=== PATIENT | female | born 1950 | race Caucasian/White ===

== ENCOUNTER → 2018-08-09 | Outpatient (CLI) | payer MEDICARE | LOC: MC.RAD 11:04 | DX: Z12.31 Encounter for screening mammogram for malignant neoplasm of breast (principal) ==

== ENCOUNTER 2019-01-05 12:35 | Emergency (ER) | payer MEDICARE ==
[2019-01-05 12:35] VITALS: TEMP 97
[2019-01-05 13:27] LABS: BASO % 0.7 % (0.0-2.0); EOS % 0.4 % (0-4.0); GRAN # 1.1 (1.4-6.5); GRAN % 41.2 % (42.2-75.2); HEMOGLOBIN 11.5 g/dl (12.5-16.0); LYMPH # 1.1 (1.2-3.4); LYMPH % 40.9 % (20.0-51.0); MEAN CELL VOLUME 85 fl (80.0-100.0); MEAN CORPUSCULAR HEMOGLOBIN 28 pg (27.0-31.0); MEAN CORPUSCULAR HGB CONC 33 g/dl (33.0-37.0); MEAN PLATELET VOLUME 10.3 fl (7.4-10.4); MONO # 0.4 (0.1-0.6); MONO % 16.4 % (1.7-9.3); PLATELET COUNT 185 K/mm3 (130-400); RED BLOOD COUNT 4.12 M/mm3 (4.10-5.30); REDCELL DISTRIBUTION WIDTH-CV 12.7 % (11.5-14.5)
[2019-01-05 13:32] LABS: HEMATOCRIT 34.9 % (37.0-47.0)
[2019-01-05 13:38] LABS: ALANINE AMINOTRANSFERASE 33 U/L (9-52); ALBUMIN 3.6 gm/dL (3.5-5.0); ALKALINE PHOSPHATASE 78 U/L (50-136); ANION GAP 9 mmol/L (7-16); AST,SGOT 29 U/L (15-37); BILIRUBIN,TOTAL 0.3 mg/dL (0.0-1.0); BLOOD UREA NITROGEN 11 mg/dL (7-17); CALCIUM 8.1 mg/dL (8.4-10.2); CARBON DIOXIDE 26 mmol/L (22-30); CHLORIDE 95 mmol/L (98-107); CREATININE, serum 0.67 (0.52-1.25); GLUCOSE 99 mg/dL (74-106); LIPASE 32 U/L (23-300); POTASSIUM 3.7 mmol/L (3.4-5.0); SODIUM 130 mmol/L (137-145); TOTAL PROTEIN 6.1 gm/dL (6.4-8.2)
[2019-01-05 13:45] LABS: C-REACTIVE PROTEIN < 0.5 mg/dL (0.0-0.9)
[2019-01-05 14:57] LABS: COLLECTION METHOD CLEAN CATCH
[2019-01-05] MEDS ORDERED: KEPPRA 500MG500 MG PO (15:25)
[2019-01-05 15:26] LABS: PH 8 (5-8); SQUAMOUS EPITHELIAL None Seen /hpf; URINE APPEARANCE Clear; URINE BACTERIA None Seen /hpf; URINE BILIRUBIN Negative (NEGATIVE); URINE BLOOD Negative (NEGATIVE); URINE COLOR Straw; URINE GLUCOSE Negative (NEGATIVE); URINE KETONE Negative (NEGATIVE); URINE LEUKOCYTE ESTERASE Negative (NEGATIVE); URINE NITRATE Negative (NEGATIVE); URINE PROTEIN(semi-quant) Negative (NEGATIVE); URINE RBC None Seen /hpf; URINE UROBILINOGEN Negative (NEGATIVE)
[2019-01-05 16:30] VITALS: BP 130/61; PULSE 54
[2019-01-05] MEDS ORDERED: NORVASC 5MG5 MG/TAB PO (18:41)
[2019-01-05] MEDS ORDERED: LOPRESSOR 225 MG/TAB PO (18:41)
[2019-01-05] MEDS ORDERED: HYZAAR 25 MG-101 TAB PO (18:42)
[2019-01-05] MEDS ORDERED: CALCIUM 600-D 61 TAB PO (18:44)
[2019-01-05] MEDS ORDERED: MULTI VITAMINS1 TAB PO (18:45)
[2019-01-05] MEDS ORDERED: EPA FISH OIL1 SGL PO (18:45)
== END 2019-01-05 17:00 | disposition home or self-care (01) ==
LOC: COL.ER 12:35
PROVIDERS: Family Medicine
DX: R55 Syncope and collapse (principal)
CPT/HCPCS: J2405; J7030

== ENCOUNTER → 2019-09-08 | Outpatient (CLI) | payer MEDICARE ==
[~2019-09-08] MED LIST: CALCIUM 600-D 61 TAB PO; EPA FISH OIL1 SGL PO; HYZAAR 25 MG-101 TAB PO; KEPPRA 500MG500 MG PO; LOPRESSOR 225 MG/TAB PO; MULTI VITAMINS1 TAB PO; NORVASC 5MG5 MG/TAB PO
== END ==
LOC: MC.RAD 14:30
DX: Z12.31 Encounter for screening mammogram for malignant neoplasm of breast (principal)

== ENCOUNTER → 2020-11-20 | Outpatient (CLI) | payer MEDICARE ==
[~2020-11-20] MED LIST changes: +COZAAR100 MG PO; +HCTZ12.5TAB PO
== END ==
LOC: MC.RAD 11:02
DX: Z12.31 Encounter for screening mammogram for malignant neoplasm of breast (principal)

== ENCOUNTER 2020-12-03 19:16 | Emergency (ER) | payer MEDICARE ==
[~2020-12-03] VITALS: Ht 165.1 cm; Wt 95.5 kg
[~2020-12-03 19:16] MED LIST changes: -COZAAR100 MG PO; -HCTZ12.5TAB PO
[2020-12-03 19:22] VITALS: TEMP 101.5
[2020-12-03 20:38] LABS: BASO % 0.6 % (0.0-2.0); EOS % 0.9 % (0-4.0); GRAN # 2.2 (1.4-6.5); GRAN % 61.7 % (42.2-75.2); HEMOGLOBIN 12.5 g/dl (12.5-16.0); LYMPH # 0.9 (1.2-3.4); LYMPH % 25.9 % (20.0-51.0); MEAN CELL VOLUME 83 fl (80.0-100.0); MEAN CORPUSCULAR HEMOGLOBIN 28 pg (27.0-31.0); MEAN CORPUSCULAR HGB CONC 34 g/dl (33.0-37.0); MEAN PLATELET VOLUME 10.2 fl (7.4-10.4); MONO # 0.4 (0.1-0.6); MONO % 10.6 % (1.7-9.3); PLATELET COUNT 211 K/mm3 (130-400); RED BLOOD COUNT 4.43 M/mm3 (4.10-5.30)
[2020-12-03 20:46] LABS: HEMATOCRIT 36.6 % (37.0-47.0)
[2020-12-03 20:47] LABS: COLLECTION METHOD CLEAN CATCH
[2020-12-03 20:54] LABS: MUCOUS Present /lpf; PH 5 (5-8); SQUAMOUS EPITHELIAL 0-2 /hpf; URINE APPEARANCE Hazy; URINE BACTERIA None Seen /hpf; URINE BILIRUBIN Negative (NEGATIVE); URINE BLOOD Negative (NEGATIVE); URINE COLOR Yellow; URINE GLUCOSE Negative (NEGATIVE); URINE KETONE Negative (NEGATIVE); URINE LEUKOCYTE ESTERASE Negative (NEGATIVE); URINE NITRATE Negative (NEGATIVE); URINE PROTEIN(semi-quant) 1+ (NEGATIVE); URINE RBC 0-2 /hpf; URINE UROBILINOGEN Negative (NEGATIVE)
[2020-12-03 20:55] LABS: BILIRUBIN,TOTAL 0.3 mg/dL (0.0-1.0); C-REACTIVE PROTEIN 3.1 mg/dL (0.0-0.9); CALCIUM 8.3 mg/dL (8.4-10.2); CREATININE, serum 0.68 (0.52-1.25); POTASSIUM 3.7 mmol/L (3.4-5.0)
[2020-12-03 22:04] VITALS: BP 121/59; PULSE 74
[2020-12-05] MEDS ORDERED: COZAAR100 MG PO (13:00)
[2020-12-05] MEDS ORDERED: HCTZ12.5TAB PO (13:00)
== END 2020-12-03 22:10 | disposition home or self-care (01) ==
LOC: COL.ER 19:16
PROVIDERS: Nurse Practitioner Primary Care
DX: U07.1 COVID-19 (principal); I10 Essential (primary) hypertension; G40.909 Epilepsy, unspecified, not intractable, without status epilepticus; Z79.899 Other long term (current) drug therapy
CPT/HCPCS: J7030

== ENCOUNTER 2020-12-05 13:00 | Outpatient (CLI) | payer MEDICARE ==
[~2020-12-05] VITALS: Ht 165.1 cm; Wt 95.0 kg
[~2020-12-05 13:00] MED LIST changes: +COZAAR100 MG PO; +HCTZ12.5TAB PO
[2020-12-05 13:19] VITALS: BP 143/94; PULSE 80
[2020-12-05 13:50] VITALS: BP 129/71; PULSE 73; TEMP 100.2
[2020-12-05 14:53] VITALS: BP 132/71; PULSE 73
--- NOTE | 2020-12-05 14:55 | NUR ---
Pt escorted out via ambualtory by is nurse.
== END 2020-12-05 14:56 | disposition home or self-care (01) ==
LOC: EUO 13:00
DX: U07.1 COVID-19 (principal)
CPT/HCPCS: Q0243

== ENCOUNTER → 2022-03-13 | Outpatient (CLI) | payer MEDICARE | LOC: MC.RAD 14:25 | DX: Z12.31 Encounter for screening mammogram for malignant neoplasm of breast (principal) ==